=== PATIENT | female | born 1955 | race Caucasian/White ===

== ENCOUNTER → 2019-10-10 17:59 | Outpatient (CLI) | payer MEDICARE, OTHER, SELFPAY ==
--- NOTE | ~2019-10-10 | MM_ITS ---
EXAMINATION: MM screening [facility] BI w john HISTORY: Screening mammogram TECHNIQUE: Craniocaudal and mediolateral oblique 3-D tomosynthesis images were obtained and synthetic 2-D images were generated. CAD analysis was submitted and interpreted. COMPARISON: 10/05/18, 06/22/17, 06/07/16 BREAST PARENCHYMAL COMPOSITION: There are scattered areas of fibroglandular density. FINDINGS: Again seen is a stable mass in the upper left breast which is considered benign given the l ack of interval change. There is no evidence of suspicious mass, calcification, or architectural dist ortion to suggest malignancy in either breast. There has been no suspicious interval change. IMPRESSION: 1. No mammographic evidence of malignancy. 2. Recommend routine screening mammography in one year. BI-RADS Category 2: Benign finding(s). Reviewed, dictated and finalized at location A. H SERVICES SPECIALIST
== END ==
DX: Z12.31 Encounter for screening mammogram for malignant neoplasm of breast (principal)
CPT/HCPCS: 77063; 77067

== ENCOUNTER → 2020-11-13 07:12 | Outpatient (CLI) | payer MEDICARE, OTHER, SELFPAY ==
--- NOTE | ~2020-11-13 | MM_ITS ---
EXAMINATION: MM screening [facility] BI w john HISTORY: Screening TECHNIQUE: Craniocaudal and mediolateral oblique 3-D tomosynthesis images were obtained and synthetic 2-D images were generated. CAD analysis was submitted and interpreted. COMPARISON: Comparison to multiple prior studies sequentially, with oldest reviewed study dated 10/2013. BREAST PARENCHYMAL COMPOSITION: There are scattered areas of fibroglandular density. FINDINGS: There is no evidence of suspicious mass, calcification, or architectural distortion to sugg est malignancy in either breast. There has been no suspicious interval change. IMPRESSION: 1. No mammographic evidence of malignancy. 2. Recommend routine screening mammography in one year. BI-RADS Category 1: Negative Reviewed, dictated and finalized at location A. ICAL PRODUCTION WORKER
== END ==
DX: Z12.31 Encounter for screening mammogram for malignant neoplasm of breast (principal)
CPT/HCPCS: 77063; 77067

== ENCOUNTER → 2021-11-16 10:00 | Outpatient (CLI) | payer MEDICARE, OTHER, SELFPAY ==
--- NOTE | ~2021-11-16 | DEXA_ITS ---
Bone Density Report Name: DOUG VARGAS Age: 66 Sex: Female Ethnicity: White Date of : 1955 Indication: postmenopausal osteoporosis; height loss; prior fracture; hysterectomy; Referring Provider: SUMMER LEES Study: Bone densitometry was performed. Exam Date: November 16, 2021 Accession number: [id number] Bone Density: Region BMD T-score Z-score Classification AP Spine (L1-L4) 0.873 -1.6 0.4 Osteopenia Femoral Neck (Left) 0.556 -2.6 -0.9 Osteoporosis Total Hip (Left) 0.604 -2.8 -1.3 Osteoporosis Femoral Neck (Right) 0.572 -2.5 -0.8 Osteoporosis Total Hip (Right) 0.635 -2.5 -1.1 Osteoporosis Total Hip Mean 0.620 -2.7 -1.2 Osteoporosis World Health Organization criteria for BMD impression classify patients as: Normal (T-score at or above -1.0), Osteopenia (T-score between -1.0 and -2.5), or Osteoporosis (T-score at or below -2.5). 10-year Fracture Risk: FRAX not reported because: Some T-score for Spine Total or Hip Total or Femoral Neck at or below -2.5 Previous Exams: Region Exam Age BMD T-score BMD Change BMD Change Date g/cm2 vs Baseline vs Previous AP Spine(L1-L4) 11/16/2021 66 0.873 -1.6 0.015 0.015 10/30/2018 63 0.857 -1.7 Total Hip(Left) 11/16/2021 66 0.604 -2.8 -0.031* -0.031* 10/30/2018 63 0.636 -2.5 Total Hip(Right) 11/16/2021 66 0.635 -2.5 -0.024 -0.024 10/30/2018 63 0.659 -2.3 *Denotes significance at 95% confidence level, LSC for AP Spine = 0.022 g/cm2, LSC for Total Hip = 0.027 g/cm2 Clinical Information Provided by Patient: Has had a low trauma fracture Smokes Has the following medical conditions: Hysterectomy Patient maximum height was 67.5 Menopause Age: 51 No regular weight bearing exercise Drinks caffeinated beverages Onset of menses at age 12 Number of children 2 Impression: The patient has established osteoporosis, based on the Left Total Hip T-score and the existence of a prior fracture. The patient has risk factors, including: smoking, previous fracture. The BMD for the Total Hip(Left) decreased, changing by -0.031 since the last DXA exam. Discussion: HIGH RISK OF FRACTURE. BONE DENSITY IS UNDESIRABLY LOW AT ONE OR MORE SKELETAL SITES, CONSISTENT WITH POSTMENOPAUSAL OSTEOPOROSIS. This patient's lowest T-score, in a patient who has previously fractured, meets the World Health Organization's (WHO) criteria for severe osteoporosis. In untreated
--- NOTE | ~2021-11-16 | MM_ITS ---
EXAMINATION: MM screening [facility] BI w john HISTORY: Screening TECHNIQUE: Craniocaudal and mediolateral oblique 3-D tomosynthesis images were obtained and synthetic 2-D images were generated. CAD analysis was submitted and interpreted. COMPARISON: Comparison to multiple prior studies sequentially, with oldest reviewed study dated 06/05. BREAST PARENCHYMAL COMPOSITION: There are scattered areas of fibroglandular density. FINDINGS: There is no evidence of suspicious mass, calcification, or architectural distortion to sugg est malignancy in either breast. There has been no suspicious interval change. IMPRESSION: 1. No mammographic evidence of malignancy. 2. Recommend routine screening mammography in one year. BI-RADS Category 1: Negative Reviewed, dictated and finalized at location A. RDS MANAGEMENT ASSISTANT
== END ==
DX: Z12.31 Encounter for screening mammogram for malignant neoplasm of breast (principal); Z78.0 Asymptomatic menopausal state; M85.88 Other specified disorders of bone density and structure, other site; M81.0 Age-related osteoporosis without current pathological fracture
CPT/HCPCS: 77063; 77067; 77080

== ENCOUNTER → 2022-12-27 15:27 | Outpatient (CLI) | payer MEDICARE, OTHER, SELFPAY ==
--- NOTE | ~2022-12-27 | MM_ITS ---
EXAMINATION: MM screening [facility] BI w john HISTORY: Screening mammogram TECHNIQUE: Craniocaudal and mediolateral oblique 3-D tomosynthesis images were obtained and synthetic 2-D images were generated. CAD analysis was submitted and interpreted. COMPARISON: 11/16/2021, 11/13/2020, 10/10/2019 BREAST PARENCHYMAL COMPOSITION: There are scattered areas of fibroglandular density. FINDINGS: No suspicious mass, calcification, or architectural distortion are identified in either adrianna ast to suggest malignancy. There has been no suspicious interval change. IMPRESSION: 1. No mammographic evidence of malignancy. 2. Recommend routine screening mammography in one year. BI-RADS Category 1: Negative Reviewed, dictated and finalized at location A.
== END ==
PROVIDERS: PCP Obstetrics & Gynecology; Visit Provider Obstetrics & Gynecology
DX: Z12.31 Encounter for screening mammogram for malignant neoplasm of breast (principal)
CPT/HCPCS: 77063; 77067

== ENCOUNTER 2023-10-21 00:21 | Day surgery (SDC) | payer MEDICARE, OTHER, SELFPAY ==
[2023-09-26 14:40] VITALS: BMI 22.1
--- NOTE | 2023-10-19 09:35 | SUR.PREOP ---
Patient called regarding upcoming procedure. Voicemail left regarding appointment times.
--- NOTE | 2023-10-20 14:52 | P.HP_ITS ---
History of Present Illness History of Present Illness Consent: Risks, benefits, and alternatives have been discussed and questions answered. Patient agrees to proceed with procedure. Chief complaint: family hx colon ca Narrative: Stephen Tian is a 68 year old female referred for colon cancer screening. She does have a family history of colon cancer [facility] Social History Social History Smoking packs per day: 0.5 Smoking cigarettes per day: 10.0 Years smoked: 50 Smoking pack-years: 25.00 Smoking status: Current every day smoker Tobacco type: cigarettes Alcohol intake: current Alcohol use details: occasional Substance use: never Substance use type: does not use Living arrangements: alone Spiritual care concerns: No Meds Home Medications and Allergies Home Medications Medication Instructions Recorded Confirmed Type No Home Medications 09/26/23 09/26/23 History Allergies Allergy/AdvReac Type Severity Reaction Status Date / Time codeine Allergy Nausea Verified 10/21/23 07:24 Assessment and Plan Assessment and plan (1) Colon cancer screening: Code(s): Z12.11 - Encounter for screening for malignant neoplasm of colon Status: Acute Assessment and Plan: Colonoscopy with possible biopsy or polypectomy or cautery or injection of substances.
[2023-10-21 07:19] VITALS: BP 119/76; PULSE 68; RESP 16; TEMP 36.3; O2SAT 100
[2023-10-21] MEDS: LACTATED RINGERS 1,000 ML 150 ML IV CONT (07:32)
--- NOTE | 2023-10-21 07:34 | WPDANESEPPF ---
Anes - Initial Pre Proc Eval Procedure: Operation Date: 10/21/23 08:30 Proposed Procedures p Colonoscopy - Edward Lewis MD Date/Time: 10/21/23 07:34 Surgeon: Edward Lewis MD Pre Op Diagnosis: family hx colon ca Patient Data Age: 68 Gender: F Height: 1.65 m Weight: 60 kg Last Vital Signs Temp 97.4 F L 10/21/23 07:19 Pulse 68 10/21/23 07:19 Resp 16 10/21/23 07:19 BP 119/76 10/21/23 07:19 Pulse Ox 100 10/21/23 07:19 O2 Del Method Room Air 10/21/23 07:19 Allergies Allergy/AdvReac Type Severity Reaction Status Date / Time codeine Allergy Nausea Verified 10/21/23 07:24 Home Medications Medication Instructions Recorded Confirmed Type No Home Medications 09/26/23 09/26/23 History Patient hx anesthesia problems: none Family hx anesthesia problems: none Results Review: All pre-operative results and documents have been reviewed as part of the pre-operative evaluation. [facility] Social History Social History Smoking packs per day: 0.5 Smoking cigarettes per day: 10.0 Years smoked: 50 Smoking pack-years: 25.00 Smoking status: Current every day smoker Tobacco type: cigarettes Alcohol intake: current Alcohol use details: occasional Substance use: never Substance use type: does not use Living arrangements: alone Spiritual care concerns: No Anes - Eval Final PreProcedure Day of Procedure 10/21/23 07:34 Patient weight: normal Heart: regular rate and rhythm Lungs: clear to auscultation Airway: Mallampati scale class II Neurological: alert and oriented Last oral intake: >/= 8 hours ASA classification: II Emergent: no Anesthetic plan: proceed Anesthesia type and monitoring: general GIVS and standard monitoring Results Review: All pre-operative results and documents have been reviewed as part of the pre-operative evaluation. Informed Consent: The patient's anesthetic plan and its attendant risks and benefits were discussed with the patient/family/POA. Questions were solicited and answers provided to the satisfaction of the patient/family/POA.
[2023-10-21 08:12] VITALS: BP 81/47; PULSE 62; RESP 17; O2SAT 97
[2023-10-21 08:22] VITALS: BP 127/55; PULSE 62; RESP 18; O2SAT 100
[2023-10-21 08:32] VITALS: BP 127/55; PULSE 65; RESP 16; O2SAT 100
--- NOTE | 2023-10-21 09:06 | SUR.PHASEII ---
pts brother was not answering phone, pt picked up at [phone].
== END 2023-10-21 08:57 | disposition home or self-care (01) ==
PROVIDERS: Visit Provider Internal Medicine Gastroenterology
PROC: 0DJD8ZZ Inspection of Lower Intestinal Tract, Via Natural or Artificial Opening Endoscopic (ICD-10-PCS; CPT 45378; principal; 2023-10-21 08:30)
DX: Z12.11 Encounter for screening for malignant neoplasm of colon (principal); K62.1 Rectal polyp; Z80.0 Family history of malignant neoplasm of digestive organs; F17.210 Nicotine dependence, cigarettes, uncomplicated
CPT/HCPCS: 45380; 88305; J2704; J7120

== ENCOUNTER 2024-02-02 10:58 | Outpatient (CLI) | payer MEDICARE, OTHER, SELFPAY ==
--- NOTE | ~2024-02-02 | DEXA_ITS ---
Bone Density Report Name: DOUG VARGAS Age: 68 Sex: Female Ethnicity: White Date of : 1955 Indication: postmenopausal osteoporosis; height loss; prior fracture; hysterectomy; Referring Provider: SUMMER LEES Study: Bone densitometry was performed. Exam Date: February 02, 2024 Accession number: [id number] Bone Density: Region BMD T-score Z-score Classification AP Spine (L1-L4) 0.920 -1.2 1.0 Osteopenia Femoral Neck (Left) 0.579 -2.4 -0.6 Osteopenia Total Hip (Left) 0.609 -2.7 -1.2 Osteoporosis Femoral Neck (Right) 0.581 -2.4 -0.6 Osteopenia Total Hip (Right) 0.616 -2.7 -1.1 Osteoporosis Total Hip Mean 0.613 -2.7 -1.2 Osteoporosis World Health Organization criteria for BMD impression classify patients as: Normal (T-score at or above -1.0), Osteopenia (T-score between -1.0 and -2.5), or Osteoporosis (T-score at or below -2.5). 10-year Fracture Risk: FRAX not reported because: Some T-score for Spine Total or Hip Total or Femoral Neck at or below -2.5 Previous Exams: Region Exam Age BMD T-score BMD Change BMD Change Date g/cm2 vs Baseline vs Previous AP Spine(L1-L4) 02/02/2024 68 0.920 -1.2 0.063* 0.047* 11/16/2021 66 0.873 -1.6 0.015 0.015 10/30/2018 63 0.857 -1.7 Total Hip(Left) 02/02/2024 68 0.609 -2.7 -0.027 0.005 11/16/2021 66 0.604 -2.8 -0.031* -0.031* 10/30/2018 63 0.636 -2.5 Total Hip(Right) 02/02/2024 68 0.616 -2.7 -0.043* -0.019 11/16/2021 66 0.635 -2.5 -0.024 -0.024 10/30/2018 63 0.659 -2.3 *Denotes significance at 95% confidence level, LSC for AP Spine = 0.022 g/cm2, LSC for Total Hip = 0.027 g/cm2 Clinical Information Provided by Patient: Has had a low trauma fracture Smokes Has used the following medications: Calcium, MTV Has the following medical conditions: Hysterectomy Patient maximum height was 67.5 Menopause Age: 51 No regular weight bearing exercise Drinks caffeinated beverages Onset of menses at age 12 Number of children 2 Impression: The patient has established osteoporosis, based on the Left Total Hip T-score and the existence of a prior fracture. The patient has risk factors, including: smoking, previous fracture. No significant bone loss was observed. Discussion: HIGH RISK OF FRACTURE. BONE DENSITY IS UNDESIRABLY LOW AT ONE OR MORE SKELETAL SITES, CONSISTENT WITH POSTMENOPAUSAL OSTEOPOROSIS. This patient's lowest T-score, in a patient who has previously fract
--- NOTE | ~2024-02-02 | MM_ITS ---
EXAMINATION: MM screening [facility] BI w john HISTORY: Screening TECHNIQUE: Craniocaudal and mediolateral oblique 3-D tomosynthesis images were obtained and synthetic 2-D images were generated. CAD analysis was submitted and interpreted. COMPARISON: Comparison to multiple prior studies sequentially, with oldest reviewed study dated 06/12. BREAST PARENCHYMAL COMPOSITION: Not dense: There are scattered areas of fibroglandular density. FINDINGS: There is no evidence of suspicious mass, calcification, or architectural distortion to sugg est malignancy in either breast. There has been no suspicious interval change. IMPRESSION: 1. No mammographic evidence of malignancy. 2. Recommend routine screening mammography in one year. BI-RADS Category 1: Negative Reviewed, dictated and finalized at location A.
== END 2024-02-02 10:59 ==
DX: Z12.31 Encounter for screening mammogram for malignant neoplasm of breast (principal); M81.6 Localized osteoporosis [Lequesne]; M81.0 Age-related osteoporosis without current pathological fracture
CPT/HCPCS: 77063; 77067; 77080